=== PATIENT | female | born 1955 | race Caucasian/White ===

== ENCOUNTER 2020-01-13 15:22 | Emergency (ER) | payer MEDICARE, SELFPAY ==
[2020-01-13 15:42] VITALS: BP 158/85; PULSE 114; RESP 14; TEMP 36.7; O2SAT 96; BMI 38.8
--- NOTE | 2020-01-13 17:50 | CTR_ITS ---
PROCEDURE INFORMATION: Exam: CT Abdomen And Pelvis With Contrast Exam date and time: 01/13/2020 6:42 PM Age: 64 years old Clinical indication: Abdominal pain; Flank; Other: Jake; Prior surgery; Surgery date: 6+ months; Surgery type: Urostomy; Patient HX: Spina bifida PT C/O back pain TECHNIQUE: Imaging protocol: Computed tomography of the abdomen and pelvis with intravenous contrast. Radiation optimization: All CT scans at this facility use at least one of these dose optimization techniques: automated exposure control; mA and/or kV adjustment per patient size (includes targeted exams where dose is matched to clinical indication); or iterative reconstruction. Contrast material: OMNI 300; Contrast volume: 95 ml; Contrast route: INTRAVENOUS (IV); COMPARISON: No relevant prior studies available. RADIATION DOSE METRICS: Total DLP (mGy-cm): 1100.08 FINDINGS: Liver: There is a diffuse decrease in hepatic parenchymal density, consistent with fatty infiltration. There is focal fatty sparing about the gallbladder fossa. Gallbladder and bile ducts: See Liver finding. Pancreas: Normal. No ductal dilation. Spleen: Normal. No splenomegaly. Adrenals: Normal. No mass. Kidneys and ureters: Bilateral renal cysts. Largest renal cyst is in the left kidney measuring 18 mm. These have benign features and follow-up is not necessary. Stomach and bowel: Colonic constipation is present. There is a right lower quadrant ostomy. Appendix: No evidence of appendicitis. Intraperitoneal space: Unremarkable. No free air. No significant fluid collection. Vasculature: Unremarkable. No abdominal aortic aneurysm. Lymph nodes: Unremarkable. No enlarged lymph nodes. Bladder: Unremarkable as visualized. Reproductive: There are heterogeneous uterine lesions consistent with fibroids. Bones/joints: Please see the CT scan of the thoracic and lumbar spine for description of the spine including spina bifida findings. Soft tissues: There is increased density in the perianal soft tissues. No abscess is seen. CT/CT abdomen pelvis w con* [id number] IMPRESSION: 1. Fatty infiltration of the liver. 2. Colonic constipation is present. 3. Uterine fibroids. 4. There is non-specific increased density in the perianal soft tissues. Radiation Dose CTDIVOL = (mGy): DLP = 1100.08 (mGy-cm)
--- NOTE | 2020-01-13 17:50 | CTR_ITS ---
PROCEDURE INFORMATION: Exam: CT Lumbar Spine Without Contrast Exam date and time: 01/13/2020 6:42 PM Age: 64 years old Clinical indication: Low back pain; Prior surgery; Surgery date: 6+ months; Patient HX: Spina bifida PT C/O back pain TECHNIQUE: Imaging protocol: Computed tomography images of the lumbar spine without contrast. Radiation optimization: All CT scans at this facility use at least one of these dose optimization techniques: automated exposure control; mA and/or kV adjustment per patient size (includes targeted exams where dose is matched to clinical indication); or iterative reconstruction. COMPARISON: No relevant prior studies available. RADIATION DOSE METRICS: Total DLP (mGy-cm): 2074.85 FINDINGS: Vertebrae: There is spina bifida from the L3-L4 through the L5-S1 levels. The posterior aspect of the thecal sac extrudes 2.7 cm posteriorly through the bony defect at the L4 level.Minimal lateral curvature of the upper lumbar spine with the convexity to the left. 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 L1-L2: No significant disc protrusion. No severe spinal canal stenosis. No significant neural foraminal narrowing. L2-L3: No significant disc protrusion. No spinal canal stenosis. No neural foraminal narrowing. L3-L4: No significant disc protrusion. No severe spinal canal stenosis. No significant neural foraminal narrowing. L4-L5: Minimal disc bulge, posterior osteophytes, and severe facet arthropathy. There is [id number] bilateral neural foraminal narrowing. L5-S1: There is a disc bulge, small posterior osteophytes, and severe facet arthropathy. There is severe narrowing of the right neural foramen with compression of the exiting right L5 nerve root. Mild to moderate narrowing of the left neural foramen. Soft tissues: Unremarkable. CT/CT lumbar spine wo con* [id number] IMPRESSION: 1. There is spina bifida from the L3-L4 through the L5-S1 levels. The posterior aspect of the thecal sac extrudes 2.7 cm posteriorly through the bony defect at the L4 level. 2. 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 3. At L5-S1 level there is a disc bulge, posterior osteophytes, and severe facet arthropathy contributing to severe narrowing of the right neural foramen with compression of the exiting right L5 nerve roots. Radiation Dose CTDIVOL = (mGy): DLP = 2074.85 (mGy-cm)
--- NOTE | 2020-01-13 17:50 | CTR_ITS ---
PROCEDURE INFORMATION: Exam: CT Thoracic Spine Without Contrast Exam date and time: 01/13/2020 6:42 PM Age: 64 years old Clinical indication: Pain in thoracic spine; Without myelpathy or radiculopathy; Patient HX: Spina bifida PT C/O back pain TECHNIQUE: Imaging protocol: Computed tomography images of the thoracic spine without contrast. Radiation optimization: All CT scans at this facility use at least one of these dose optimization techniques: automated exposure control; mA and/or kV adjustment per patient size (includes targeted exams where dose is matched to clinical indication); or iterative reconstruction. COMPARISON: No relevant prior studies available. RADIATION DOSE METRICS: Total DLP (mGy-cm): 1611.1 FINDINGS: Vertebrae: Moderate upper thoracic dextroscoliosis. 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 There are degenerative changes throughout the visualized spine including marginal osteophyte formations, endplate degenerative changes, and facet arthropathy. Discs/Spinal canal/Neural foramina: Multilevel disc space narrowing. There is a midline protrusion at the T7-8 level indenting the anterior thecal sac. A small left paracentral protrusion is present at the T8-9 level indenting the anterior thecal sac. Soft tissues: Unremarkable. CT/CT thoracic spin wo con* [id number] IMPRESSION: 1. Moderate upper thoracic dextroscoliosis. 2. 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 3. There are degenerative changes as described above. No evidence for acute fracture. Radiation Dose CTDIVOL = (mGy): DLP = 1611.1 (mGy-cm)
[2020-01-13 18:12] LABS: Basophils # 0.1 10^3/uL (0.0-0.1); Basophils % 0.4 %; Eosinophils % 0.2 %; Hematocrit 49.3 % (37.0-47.0); Hemoglobin 16.3 g/dL (11.5-15.3); Lymphocytes # 2.9 10^3/uL (0.8-4.8); Lymphocytes % 23.4 %; Mean Corpuscular HGB Conc 33.1 g/dL (30.0-36.0); Mean Corpuscular Hemoglobin 29.5 pg (28.0-34.0); Mean Corpuscular Volume 89.3 fL (81-99); Mean Platelet Volume 8.7 fL (7.4-10.4); Monocytes # 1.1 10^3/uL (0.2-0.9); Neutrophils % 66.8 %; Nucleated Red Blood Cells % 0 %; Platelet Count 437 10^3/cmm (130-400); Red Blood Count 5.52 10^6/uL (4.1-5.3); Red Cell Distribution Width 12.2 % (12.1-15.1); White Blood Count 12.2 10^3/uL (4.0-10.0)
[2020-01-13] MEDS: sodium chloride 0.9% 1,000 ML 100 ML IV (18:22)
[2020-01-13 18:23] VITALS: RESP 18; O2SAT 98
[2020-01-13] MEDS: ondansetron 2 mg/ML SDV 2 mL 4 MG IVP (18:23)
[2020-01-13] MEDS: morphine 4 mg/mL SDV 1 mL IVP (18:23)
[2020-01-13 18:30] LABS: Bilirubin Urine Neg (NEGATIVE); Blood Urine 2+ (Negative); Glucose Urine UA Norm (Normal); Ketones Urine 1+ (Negative); Leukocyte Esterase Urine 1+ (Negative); Nitrate Urine Negative (Negative); Protein Urine Neg (Negative); Urine Appearance Cloudy (CLEAR); Urine Color Yellow (Yellow); Urobilinogen Urine Norm (Negative); pH Urine 7 (5-7)
[2020-01-13 18:31] LABS: Bacteria Urine 3+; Squamous Epithelial Cell Urine 0-4 (0-5); WBC Urine 25-40 /hpf (0-5)
[2020-01-13 18:32] LABS: Add Urine Culture? Yes; Mucus Urine 1+
--- NOTE | 2020-01-13 18:36 | ED_ITS ---
HPI - Back Pain/Injury General: Chief Complaint: Back Pain/Injury Stated Complaint: BACK PAIN Time Seen by Provider: 01/13/20 17:35 Source: patient Mode of arrival: wheelchair Limitations: no limitations History of Present Illness: HPI Narrative: Nemo is a 64-year-old female who comes in complaining of back pain. The patient has spina bifida and has had surgery to cover the affected area. She has had back pain off and on and can walk with braces. About 2-1/2 weeks ago she developed what she thought was a knot or area on her left buttock or upper buttock area. Since that time the pain is gotten progressively worse and she is no longer able to walk. The patient denies any loss of bowel or bladder control specifically bowel control but she normally has a ureterostomy. Patient is difficult to assess secondary to her history of spina bifida partial paralysis. Associated symptoms: Deny abdominal pain, chills, difficulty walking, dysuria, fatigue, fever(s), hematuria, nausea, syncope, urinary urgency or vomiting Review of Systems Const: Denies: fever(s), chills, body aches, fatigue, malaise or diaphoresis Eyes: Denies: change in vision, blurry vision, blind spots, photophobia, eye discharge or eye redness ENMT: Denies: throat pain, odynophagia, hoarseness, swelling of lips/tongue, oral sores, ear or mastoid pain, ear discharge, change in hearing or nasal discharge Card: Denies: chest pain, palpitations, irregular heart rhythm, edema, lightheadedness, syncope, pre-syncope, dyspnea on exertion or orthopnea Resp: Denies: dyspnea, productive cough, non-productive cough, wheezing, hemoptysis or chest congestion GI: Denies: abdominal pain, nausea, vomiting, hematemesis, coffee ground emesis, heartburn, diarrhea, constipation, GI cramping, hematochezia or melena : Denies: flank pain, dysuria, urinary frequency, urinary urgency or hematuria Musc: Reports: back pain; Denies: neck pain, extremity pain, extremity swelling, joint pain, joint swelling, joint redness, joint warmth or joint stiffness Skin/Breast: Denies: rash, pruritus, erythema, skin tenderness or jaundice Neuro: Denies: headache(s), numbness in extremities, weakness in extremities, sensory changes, lack of coordination, difficulty walking, dizziness, vertigo, confusion, Slurred speech present or seizure-like activity Naun/Lymph: Denies: easy bruising, easy bleeding, petechiae, purpura or enlarged lymph nodes All/Imm: Denies: urticaria, throat swelling, tongue swelling, facial swelling or acute wheezing PFSH ED PFSH: Medical History Spina bifida occulta Surgical History Previous back surgery Physical Exam Const: COMMON NORMALS: no acute distress, patient oriented x3, no limitations, healthy appearing and well nourished GENERAL APPEARANCE: cooperative, well kempt and well developed HENMT: COMMON NORMALS: normocephalic, atraumatic, external ears normal, EAC's normal and Normal external nose present HEAD & SCALP: normal to inspection, normocephalic and atraumatic FACE & SINUS: normal facial exam and face symmetric NOSE: Normal external nose present and Normal nares present EXTERNAL EAR: Yes external ears normal EXTERNAL AUDITORY CANAL: EAC's normal MOUTH: Normal oral and palatal mucosa present, lip normal and tongue normal Eye: COMMON NORMALS: Equal, round and reactive pupils present and conjunctivae normal GENERAL EYE: appearance normal, both eyes and all related structures ALIGNMENT: Yes alignment normal PERIORBITAL: periorbital findings normal EYELID: eyelids normal CONJUNCTIVA: Yes conjunctivae normal SCLERA: sclerae normal PUPIL: Yes Equal, round and reactive pupils present Neck/C-Spine: COMMON NORMALS: full ROM, no lymphadenopathy, supple, no meningeal signs and no JVD GENERAL: Yes normal visual inspection and Yes trachea midline Chest: COMMONS NORMALS: normal inspection of the chest and normal palpation of entire chest wall Resp: COMMON NORMALS: normal respiratory effort, No retractions and No use of accessory muscles EFFORT & INSPECTION: Yes able to speak in complete sentences and Yes symmetric chest movement AUSCULTATION: no crackles, no rales, no rhonchi and no wheezes Cardio: COMMON NORMALS: no JVD, regular rate, regular rhythm, S1 normal heart sound present and S2 normal heart sound present RATE: regular rate RHYTHM: regular rhythm HEART SOUNDS: S1 normal heart sound present, S2 normal heart sound present, no click, no gallops, no murmurs, no rubs and abnormal split S2 GI: COMMON NORMALS: Soft to palpation and No hepatosplenomegaly present PALPATION: Yes Soft to palpation, No Tenderness to palpation present (GI), No Guarding due to palpation present (GI), No Rigid due to palpation, Yes No hepatosplenomegaly present, No Hernia present, No Palpable mass present and No P ulsatile mass present : COMMON NORMALS: Yes no CVA tenderness BLADDER/KIDNEY EXAM: Yes no CVA tenderness EXTERNAL FEMALE EXAM: No Hernia present Back/Pelvis: COMMON NORMALS: no CVA tenderness, thoracic and lumbar spine normal to inspection, no thoracic nor lumbar tenderness and thoraco-lumbar ROM normal Neuro: COMMON NORMALS: patient oriented x3 and CN's II-XII intact bilaterally MENINGEAL SIGNS: Yes no meningeal signs SPEECH: speech normal GAIT: Yes Other gait observations present (Unable to ambulate secondary to pain) SENSORY EXAM: Yes Trunk sensory exam abnormal (Present to the level midway between pubic ramus and umbilicus) MOTOR EXAM: Other motor observations present (Patient with 4-5 muscle strength bilateral hips. Patient with 0-5 muscle strength from the knees down bilaterally.) DEEP TENDON REFLEXES: Right patellar reflex intensity grade: 0, Left patellar reflex intensity grade: 0, Right ankle reflex intensity grade: 0 and Left ankle reflex intensity grade: 0 Psych: APPEARANCE: Yes well kempt Skin: COMMON NORMALS: no rashes or lesions noted, turgor normal, no jaundice, no petechiae and no mottling GENERAL SKIN EXAM: no rashes or lesions noted and turgor normal Course ED course: 2003 -Case reviewed with Dr. Leon at [facility], he recommends MRI as the patient's normal neurologic exam is altered from the spina bifida. She is available for review if necessary based upon results. Vital Signs: Vital signs: Vital Signs Temperature 98.2 F 01/13/20 22:08 Pulse Rate 84 01/13/20 22:08 Respiratory Rate 18 01/13/20 22:08 Blood Pressure 135/73 01/13/20 22:08 Pulse Oximetry 92 01/13/20 22:08 MDM - Back Pain/Injury MDM Narrative: Medical decision making narrative: [id number] -the MRIs were discussed with the radiologist directly. She states that she cannot rule out a cord compression syndrome secondary to the patient's appearance of her cord and the changes secondary to her spina bifida. The case was again completely reviewed with Dr. Leon, she cannot commit to an opinion without reviewing the patient's MRIs. We have tried multiple times to send the patient's MRIs electronically to [facility] but have been unsuccessful as of this time. With a complex presentation of this patient secondary to her spina bifida I believe a neurosurgical or a back specialist evaluation is appropriate as well, I believe review of the MRIs, lab values and a physical exam would be appropriate in this complex scenario. I did review the case with Dr. Sheets who states even if the neurosurgeon is able at some point to see the MRIs he is uncomfortable keeping her here as she is too complex and he believes the patient needs to see the neurosurgeon or back specialist directly. Clinically the patient states she has no reflexes normally and we cannot assess for urinary retention as the patient has a ureterostomy. She does not appear septic from a UTI at this time but I have covered her with antibiotics. The patient has continued pain and cannot get up out of bed to walk and I believe this would be a tremendous loss to her if she would lose the ability to ambulate. I have reviewed the case with Dr. Cornelius at [facility] emergency department and she agrees to accept the patient in transfer. We will send the patient's hard copies of her MRIs as well as the reports to them. I did review the case verbally over the phone with radiologist who could not confirm to me there was no evidence of cauda equina syndrome and actually stated that there could be based upon the patient's anatomy from her spina bifida. Clinically I think this is less likely but again after reviewing with the patient she wants to be transferred for evaluation by the neurosurgeon. She is refusing to go by air ambulance service so we will transfer her by ground transfer as soon as possible. Lab Data: Attestation: I reviewed the patient's lab results. Labs: Lab Results 01/13/20 01/13/20 01/13/20 Range/Units 17:25 18:05 18:05 WBC 12.2 H (4.0-10.0) 10^3/ uL RBC 5.52 H (4.1-5.3) 10^6/u L Hgb 16.3 H (11.5-15.3) g/dL Hct 49.3 H (37.0-47.0) % MCV 89.3 (81-99) fL MCH 29.5 (28.0-34.0) pg MCHC 33.1 (30.0-36.0) g/dL RDW 12.2 (12.1-15.1) % Plt Count 437 H (130-400) 10^3/c mm MPV 8.7 (7.4-10.4) fL Neut % (Auto) 66.8 % Lymph % (Auto) 23.4 % [place] % (Auto) 9.0 % Eos % (Auto) 0.2 % Baso % (Auto) 0.4 % Neut # (Auto) 8.10 H (1.8-7.7) 10^3/u L Lymph # (Auto) 2.9 (0.8-4.8) 10^3/u L [place] # (Auto) 1.1 H (0.2-0.9) 10^3/u L Eos # (Auto) 0.0 (0.0-0.8) 10^3/u L Baso # (Auto) 0.1 (0.0-0.1) 10^3/u L Nucleated RBC % (a uto) 0 % Nucleated RBCs # 0.0 /100WBC Sodium 139 (136-145) mmol/L Potassium 3.8 (3.5-5.1) mmol/L Chloride 104 (98-107) mmol/L Carbon Dioxide 22 (22-29) mmol/L Anion Gap 16.8 (5-19) BUN 24 H (8-23) mg/dL Creatinine 0.7 (0.5-0.9) mg/dL GFR Calculation 84.0 L (90-130) mL/min Glucose 101 (65-115) mg/dL Calculated Osmolal ity 285 (285-295) mOsm/k g Lactic Acid (0.5-2.2) mmol/L Lactic Acid (Sepsi s) (0.5-2.2) mmol/L Calcium 10.6 H (8.5-10.5) mg/dL Magnesium 2.1 (1.7-2.3) mg/dL Total Bilirubin 0.5 (0.15-1.2) mg/dL AST 22 (0-32) U/L ALT 37 H (0-33) U/L Alkaline Phosphata se 109 H (35-105) IU/L Total Protein 8.2 (6.6-8.7) g/dL Albumin 4.7 (3.5-5.2) g/dL Globulin 3.5 (1.3-4.6) g/dL Urine Color Yellow (Yellow) Urine Appearance Cloudy (CLEAR) Urine pH 7 (5-7) Ur Specific Gravit y 1.010 (1.005-1.030) Urine Protein Neg (Negative) Urine Glucose (UA) Norm (Normal) Urine Ketones 1+ H (Negative) Urine Blood 2+ H (Negative) Urine Nitrate Negative (Negative) Urine Bilirubin Neg (NEGATIVE) Urine Urobilinogen Norm (Negative) mg/dL Ur Leukocyte Nano ase 1+ H (Negative) Urine RBC 5-10 H (0-2) /hpf Urine WBC 25-40 H (0-5) /hpf Ur Squamous Epith Cells 0-4 H (0-5) Amorphous Sediment Not Reportable Urine Bacteria 3+ H (NONE) Urine Mucus 1+ 01/13/20 01/13/20 Range/Units 18:05 22:12 WBC (4.0-10.0) 10^3/ uL RBC (4.1-5.3) 10^6/u L Hgb (11.5-15.3) g/dL Hct (37.0-47.0) % MCV (81-99) fL MCH (28.0-34.0) pg MCHC (30.0-36.0) g/dL RDW (12.1-15.1) % Plt Count (130-400) 10^3/c mm MPV (7.4-10.4) fL Neut % (Auto) % Lymph % (Auto) % [place] % (Auto) % Eos % (Auto) % Baso % (Auto) % Neut # (Auto) (1.8-7.7) 10^3/u L Lymph # (Auto) (0.8-4.8) 10^3/u L [place] # (Auto) (0.2-0.9) 10^3/u L Eos # (Auto) (0.0-0.8) 10^3/u L Baso # (Auto) (0.0-0.1) 10^3/u L Nucleated RBC % (a uto) % Nucleated RBCs # /100WBC Sodium (136-145) mmol/L Potassium (3.5-5.1) mmol/L Chloride (98-107) mmol/L Carbon Dioxide (22-29) mmol/L Anion Gap (5-19) BUN (8-23) mg/dL Creatinine (0.5-0.9) mg/dL GFR Calculation (90-130) mL/min Glucose (65-115) mg/dL Calculated Osmolal ity (285-295) mOsm/k g Lactic Acid 2.2 (0.5-2.2) mmol/L Lactic Acid (Sepsi s) 0.8 (0.5-2.2) mmol/L Calcium (8.5-10.5) mg/dL Magnesium (1.7-2.3) mg/dL Total Bilirubin (0.15-1.2) mg/dL AST (0-32) U/L ALT (0-33) U/L Alkaline Phosphata se (35-105) IU/L Total Protein (6.6-8.7) g/dL Albumin (3.5-5.2) g/dL Globulin (1.3-4.6) g/dL Urine Color (Yellow) Urine Appearance (CLEAR) Urine pH (5-7) Ur Specific Gravit y (1.005-1.030) Urine Protein (Negative) Urine Glucose (UA) (Normal) Urine Ketones (Negative) Urine Blood (Negative) Urine Nitrate (Negative) Urine Bilirubin (NEGATIVE) Urine Urobilinogen (Negative) mg/dL Ur Leukocyte Nano ase (Negative) Urine RBC (0-2) /hpf Urine WBC (0-5) /hpf Ur Squamous Epith Cells (0-5) Amorphous Sediment Urine Bacteria (NONE) Urine Mucus Imaging Data^: CT Abd/Pel: Radiologist's impression: [address] [address] [address] Scan Report Signed Patient: Nemo Peters Unit #: [id number] : 1955 Age/Sex: 64 / F ADM Date: 01/13/20 Loc: ER Room/Bed: Attending Dr: Ordering Provider/Ordering MD: Dannielle Hernandez DO Date of Service: 01/13/20 Procedure(s): CT abdomen pelvis w con* [id number] Accession Number(s): [id number] Report Number: [id number] PROCEDURE INFORMATION: Exam: CT Abdomen And Pelvis With Contrast Exam date and time: 01/13/2020 6:42 PM Age: 64 years old Clinical indication: Abdominal pain; Flank; Other: Jake; Prior surgery; Surgery date: 6+ months; Surgery type: Urostomy; Patient HX: Spina bifida PT C/O back pain TECHNIQUE: Imaging protocol: Computed tomography of the abdomen and pelvis with intravenous contrast. Radiation optimization: All CT scans at this facility use at least one of these dose optimization techniques: automated exposure control; mA and/or kV adjustment per patient size (includes targeted exams where dose is matched to clinical indication); or iterative reconstruction. Contrast material: OMNI 300; Contrast volume: 95 ml; Contrast route: INTRAVENOUS (IV); COMPARISON: No relevant prior studies available. RADIATION DOSE METRICS: Total DLP (mGy-cm): 1100.08 FINDINGS: Liver: There is a diffuse decrease in hepatic parenchymal density, consistent with fatty infiltration. There is focal fatty sparing about the gallbladder fossa. Gallbladder and bile ducts: See Liver finding. Pancreas: Normal. No ductal dilation. Spleen: Normal. No splenomegaly. Adrenals: Normal. No mass. Kidneys and ureters: Bilateral renal cysts. Largest renal cyst is in the left kidney measuring 18 mm. These have benign features and follow-up is not necessary. Stomach and bowel: Colonic constipation is present. There is a right lower quadrant ostomy. Appendix: No evidence of appendicitis. Intraperitoneal space: Unremarkable. No free air. No significant fluid collection. Vasculature: Unremarkable. No abdominal aortic aneurysm. Lymph nodes: Unremarkable. No enlarged lymph nodes. Bladder: Unremarkable as visualized. Reproductive: There are heterogeneous uterine lesions consistent with fibroids. Bones/joints: Please see the CT scan of the thoracic and lumbar spine for description of the spine including spina bifida findings. Soft tissues: There is increased density in the perianal soft tissues. No abscess is seen. CT/CT abdomen pelvis w con* [id number] IMPRESSION: 1. Fatty infiltration of the liver. 2. Colonic constipation is present. 3. Uterine fibroids. 4. There is non-specific increased density in the perianal soft tissues. Radiation Dose CTDIVOL = (mGy): DLP = 1100.08 (mGy-cm) Dictated By: Taylor Hampton MD Signed By: Taylor Hampton MD Signed Date/Time: 01/13/201950 DD/ 49 CT Thoracic Spine: Radiologist's impression: [facility] [address] [place] [address] CT Scan Report Signed Patient: Nemo Peters Unit #: [id number] : 1955 Age/Sex: 64 / F ADM Date: 01/13/20 Loc: ER Room/Bed: Attending Dr: Ordering Provider/Ordering MD: Dannielle Hernandez DO Date of Service: 01/13/20 Procedure(s): CT thoracic spin wo con* [id number] Accession Number(s): [id number] Report Number: [id number] PROCEDURE INFORMATION: Exam: CT Thoracic Spine Without Contrast Exam date and time: 01/13/2020 6:42 PM Age: 64 years old Clinical indication: Pain in thoracic spine; Without myelpathy or radiculopathy; Patient HX: Spina bifida PT C/O back pain TECHNIQUE: Imaging protocol: Computed tomography images of the thoracic spine without contrast. Radiation optimization: All CT scans at this facility use at least one of these dose optimization techniques: automated exposure control; mA and/or kV adjustment per patient size (includes targeted exams where dose is matched to clinical indication); or iterative reconstruction. COMPARISON: No relevant prior studies available. RADIATION DOSE METRICS: Total DLP (mGy-cm): 1611.1 FINDINGS: Vertebrae: Moderate upper thoracic dextroscoliosis. 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 There are degenerative changes throughout the visualized spine including marginal osteophyte formations, endplate degenerative changes, and facet arthropathy. Discs/Spinal canal/Neural foramina: Multilevel disc space narrowing. There is a midline protrusion at the T7-8 level indenting the anterior thecal sac. A small left paracentral protrusion is present at the T8-9 level indenting the anterior thecal sac. Soft tissues: Unremarkable. CT/CT thoracic spin wo con* [id number] IMPRESSION: 1. Moderate upper thoracic dextroscoliosis. 2. 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 3. There are degenerative changes as described above. No evidence for acute fracture. Radiation Dose CTDIVOL = (mGy): DLP = 1611.1 (mGy-cm) Dictated By: Taylor Hampton MD Signed By: Taylor Hampton MD Signed Date/Time: 01/13/201939 DD/ 37 CT Lumbar Spine: Radiologist's impression: [address] [address] [address] Scan Report Signed with Addenda Patient: Nemo Peters Unit #: [id number] : 1955 Age/Sex: 64 / F ADM Date: 01/13/20 Loc: ER Room/Bed: Attending Dr: Ordering Provider/Ordering MD: Dannielle Hernandez DO Date of Service: 01/13/20 Procedure(s): CT lumbar spine wo con* [id number] Accession Number(s): [id number] Report Number: [id number]/CT lumbar spine wo con* [id number] Findings were discussed with the patient's physician at the time of this addendum. Radiation Dose CTDIVOL = (mGy): DLP = 2074.85 (mGy-cm) Addendum Dictated By: Taylor Hampton MD Addendum Signed By: Taylor Hampton MD Signed Date/Time: 01/13/20 438 Addendum Cosigned By: PROCEDURE INFORMATION: Exam: CT Lumbar Spine Without Contrast Exam date and time: 01/13/2020 6:42 PM Age: 64 years old Clinical indication: Low back pain; Prior surgery; Surgery date: 6+ months; Patient HX: Spina bifida PT C/O back pain TECHNIQUE: Imaging protocol: Computed tomography images of the lumbar spine without contrast. Radiation optimization: All CT scans at this facility use at least one of these dose optimization techniques: automated exposure control; mA and/or kV adjustment per patient size (includes targeted exams where dose is matched to clinical indication); or iterative reconstruction. COMPARISON: No relevant prior studies available. RADIATION DOSE METRICS: Total DLP (mGy-cm): 2074.85 FINDINGS: Vertebrae: There is spina bifida from the L3-L4 through the L5-S1 levels. The posterior aspect of the thecal sac extrudes 2.7 cm posteriorly through the bony defect at the L4 level.Minimal lateral curvature of the upper lumbar spine with the convexity to the left. 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 L1-L2: No significant disc protrusion. No severe spinal canal stenosis. No significant neural foraminal narrowing. L2-L3: No significant disc protrusion. No spinal canal stenosis. No neural foraminal narrowing. L3-L4: No significant disc protrusion. No severe spinal canal stenosis. No significant neural foraminal narrowing. L4-L5: Minimal disc bulge, posterior osteophytes, and severe facet arthropathy. There is [id number] bilateral neural foraminal narrowing. L5-S1: There is a disc bulge, small posterior osteophytes, and severe facet arthropathy. There is severe narrowing of the right neural foramen with compression of the exiting right L5 nerve root. Mild to moderate narrowing of the left neural foramen. Soft tissues: Unremarkable. CT/CT lumbar spine wo con* [id number] IMPRESSION: 1. There is spina bifida from the L3-L4 through the L5-S1 levels. The posterior aspect of the thecal sac extrudes 2.7 cm posteriorly through the bony defect at the L4 level. 2. 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 3. At L5-S1 level there is a disc bulge, posterior osteophytes, and severe facet arthropathy contributing to severe narrowing of the right neural foramen with compression of the exiting right L5 nerve roots. Radiation Dose CTDIVOL = (mGy): DLP = 2074.85 (mGy-cm) Dictated By: Taylor Hampton MD Signed By: Taylor Hampton MD Signed Date/Time: 01/13/201946 DD/ 44 MR Thoracic Spine: Radiologist's impression: [address] [place] [address] Magnetic Resonance Report Signed Patient: Nemo Peters Unit #: [id number] : 1955 Age/Sex: 64 / F ADM Date: 01/13/20 Loc: ER Room/Bed: Attending Dr: Ordering Provider/Ordering MD: Dannielle Hernandez DO Date of Service: 01/13/20 Procedure(s): MR thoracic spin wo con* [id number] Accession Number(s): [id number] Report Number: [id number] PROCEDURE INFORMATION: Exam: MR Thoracic Spine Without Contrast Exam date and time: 01/13/2020 8:04 PM Age: 64 years old Clinical indication: Pain in thoracic spine; Prior surgery; Additional info: Pain, leg weakness TECHNIQUE: Imaging protocol: Multiplanar magnetic resonance images of the thoracic spine without contrast. COMPARISON: CT thoracic spin wo con* [id number] 01/13/2020 6:47 PM FINDINGS: Vertebrae: There is partial congenital osseous fusion across the T5-T6 level. Spinal cord: Normal signal. No cord compression. Discs/Spinal canal/Neural foramina: At the T7-8 level there is a midline/left paracentral protrusion indenting the anterior thecal sac. No significant canal stenosis or cord compression. Neural foramina are within normal limits in caliber. At the T8-9 level there is a small left paracentral posterior osteophyte which indents the anterior thecal sac. No significant canal or neural foramina stenosis. There is a benign hemangioma in the L1 vertebra. Mild thoracic dextroscoliosis. There are a combination of sclerotic and edematous endplate degenerative changes across the T7-8 level at the apex of the scoliotic curvature. Soft tissues: Unremarkable. MR/MR thoracic spin wo con* [id number] IMPRESSION: 1. 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 2. Mild thoracic dextroscoliosis. There are a combination of sclerotic and edematous endplate degenerative changes across the T7-8 level at the apex of the scoliotic curvature. 3. At the T8-9 level there is a small left paracentral posterior osteophyte which indents the anterior thecal sac. No significant canal or neural foramina stenosis. Dictated By: Taylor Hampton MD Signed By: Taylor Hampton MD Signed Date/Time: 01/13/202207 DD/ 05 MR Lumbar Spine: Radiologist's impression: [address] [place] [address] Magnetic Resonance Report Signed Patient: Nemo Peters Unit #: [id number] : 1955 Age/Sex: 64 / F ADM Date: 01/13/20 Loc: ER Room/Bed: Attending Dr: Ordering Provider/Ordering MD: Dannielle Hernandez DO Date of Service: 01/13/20 Procedure(s): MR lumbar spine wo con* [id number] Accession Number(s): [id number] Report Number: [id number] PROCEDURE INFORMATION: Exam: MR Lumbar Spine Without Contrast. Exam date and time: 01/13/2020 8:04 PM Age: 64 years old Clinical indication: Low back pain; Prior surgery; Surgery type: 1954 lumbar surgery HX of spinal bifida; Additional info: Pain, leg weakness TECHNIQUE: Imaging protocol: Multiplanar magnetic resonance images of the lumbar spine without intravenous contrast. COMPARISON: CT lumbar spine wo con* [id number] 01/13/2020 6:50 PM FINDINGS: Vertebrae: L1 benign hemangioma. There are defects in the posterior elements from the L3-L4 through L5-S1 levels, consistent with spina bifida. The thecal sac is elongated and extrudes through the posterior element defects at the L4-L5 level. Thecal sac measures 4.3 cm in AP dimension at the L4-L5 level. Spinal cord: The conus is low lying terminating at the L3 level. Hypoplastic appearing cauda equina are present inferior to the conus with some extrusion through the bony defect at the L4-L5 level. L1-L2: No significant disc disease. No significant spinal canal stenosis. 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 L2-L3: No significant disc disease. There are small posterior osteophytes and moderate facet arthropathy. In combination with short pedicles, there is moderate to severe bilateral neural foraminal narrowing. L3-L4: No significant disc disease. There are posterior osteophytes and moderate to severe facet arthropathy. In combination with congenitally short pedicles, there is moderate to severe bilateral neural foraminal narrowing. L4-L5: There is a minimal broad-based disc osteophyte complex and severe facet arthropathy. In combination with congenital short pedicles there is moderate narrowing of the left neural foramen and moderate to severe narrowing of the right neural foramen. 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 Small posterior osteophytes and moderate facet arthropathy in combination with short pedicles contribute to mild narrowing of the left neural foramen and severe narrowing of the right neural foramen. Soft tissues: There is edema in the subcutaneous soft tissues of the lower lumbar spine. MR/MR lumbar spine wo con* [id number] IMPRESSION: 1. There are spina bifida changes from the L3-L4 through the L5-S1 levels as described above with extrusion of the thecal sac through the bony defects at the L4-L5 level. The conus is low lying terminating at the L3 level and the cauda equina are hypoplastic appearing. 2. Multilevel, multifactorial degenerative changes are present in the lumbar spine which in combination with congenitally short pedicles contribute to varying degrees of bilateral neural foraminal narrowing as described in detail above. Dictated By: Taylor Hampton MD Signed By: Taylor Hampton MD Signed Date/Time: 01/13/202218 DD/ 17 Discharge Plan Discharge Patient Disposition: Xfer Short-Term Hosp Clinical Impression: Intractable back pain Condition: Stable Referrals: Fransico Mancilla DO [Primary Care Provider] - Discharge Date/Time: 01/14/20 00:49 Coding Level of Care Code ED Intensive Care Anaesthetist for Chg Fwd Exam Comprehensive
[2020-01-13 18:38] LABS: Alanine Aminotransferase 37 U/L (0-33); Albumin Level 4.7 g/dL (3.5-5.2); Alkaline Phosphatase 109 IU/L (35-105); Anion Gap 16.8 (5-19); Aspartate Amino Transferase 22 U/L (0-32); Blood Urea Nitrogen 24 mg/dL (8-23); Calcium 10.6 mg/dL (8.5-10.5); Carbon Dioxide 22 mmol/L (22-29); Chloride 104 mmol/L (98-107); Globulin 3.5 g/dL (1.3-4.6); Glucose 101 mg/dL (65-115); Magnesium 2.1 mg/dL (1.7-2.3); Osmolality Calculated 285 mOsm/kg (285-295); Potassium 3.8 mmol/L (3.5-5.1); Sodium 139 mmol/L (136-145); Total Bilirubin 0.5 mg/dL (0.15-1.2); Total Protein 8.2 g/dL (6.6-8.7)
[2020-01-13] MEDS: iohexol 300 mg/mL 100 mL Btl IV (19:03)
[2020-01-13 19:06] LABS: Lactic Sepsis W/Reflex 2.2 mmol/L (0.5-2.2)
[2020-01-13] MEDS: cefTRIAXone 1,000 MG in sodium chloride 0.9% (plus) 50 ML 100 MG IV (19:38)
--- NOTE | 2020-01-13 20:03 | MRR_ITS ---
PROCEDURE INFORMATION: Exam: MR Lumbar Spine Without Contrast. Exam date and time: 01/13/2020 8:04 PM Age: 64 years old Clinical indication: Low back pain; Prior surgery; Surgery type: 1954 lumbar surgery HX of spinal bifida; Additional info: Pain, leg weakness TECHNIQUE: Imaging protocol: Multiplanar magnetic resonance images of the lumbar spine without intravenous contrast. COMPARISON: CT lumbar spine wo con* [id number] 01/13/2020 6:50 PM FINDINGS: Vertebrae: L1 benign hemangioma. There are defects in the posterior elements from the L3-L4 through L5-S1 levels, consistent with spina bifida. The thecal sac is elongated and extrudes through the posterior element defects at the L4-L5 level. Thecal sac measures 4.3 cm in AP dimension at the L4-L5 level. Spinal cord: The conus is low lying terminating at the L3 level. Hypoplastic appearing cauda equina are present inferior to the conus with some extrusion through the bony defect at the L4-L5 level. L1-L2: No significant disc disease. No significant spinal canal stenosis. 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 L2-L3: No significant disc disease. There are small posterior osteophytes and moderate facet arthropathy. In combination with short pedicles, there is moderate to severe bilateral neural foraminal narrowing. L3-L4: No significant disc disease. There are posterior osteophytes and moderate to severe facet arthropathy. In combination with congenitally short pedicles, there is moderate to severe bilateral neural foraminal narrowing. L4-L5: There is a minimal broad-based disc osteophyte complex and severe facet arthropathy. In combination with congenital short pedicles there is moderate narrowing of the left neural foramen and moderate to severe narrowing of the right neural foramen. 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 Small posterior osteophytes and moderate facet arthropathy in combination with short pedicles contribute to mild narrowing of the left neural foramen and severe narrowing of the right neural foramen. Soft tissues: There is edema in the subcutaneous soft tissues of the lower lumbar spine. MR/MR lumbar spine wo con* [id number] IMPRESSION: 1. There are spina bifida changes from the L3-L4 through the L5-S1 levels as described above with extrusion of the thecal sac through the bony defects at the L4-L5 level. The conus is low lying terminating at the L3 level and the cauda equina are hypoplastic appearing. 2. Multilevel, multifactorial degenerative changes are present in the lumbar spine which in combination with congenitally short pedicles contribute to varying degrees of bilateral neural foraminal narrowing as described in detail above.
--- NOTE | 2020-01-13 20:03 | MRR_ITS ---
PROCEDURE INFORMATION: Exam: MR Thoracic Spine Without Contrast Exam date and time: 01/13/2020 8:04 PM Age: 64 years old Clinical indication: Pain in thoracic spine; Prior surgery; Additional info: Pain, leg weakness TECHNIQUE: Imaging protocol: Multiplanar magnetic resonance images of the thoracic spine without contrast. COMPARISON: CT thoracic spin wo con* [id number] 01/13/2020 6:47 PM FINDINGS: Vertebrae: There is partial congenital osseous fusion across the T5-T6 level. Spinal cord: Normal signal. No cord compression. Discs/Spinal canal/Neural foramina: At the T7-8 level there is a midline/left paracentral protrusion indenting the anterior thecal sac. No significant canal stenosis or cord compression. Neural foramina are within normal limits in caliber. At the T8-9 level there is a small left paracentral posterior osteophyte which indents the anterior thecal sac. No significant canal or neural foramina stenosis. There is a benign hemangioma in the L1 vertebra. Mild thoracic dextroscoliosis. There are a combination of sclerotic and edematous endplate degenerative changes across the T7-8 level at the apex of the scoliotic curvature. Soft tissues: Unremarkable. MR/MR thoracic spin wo con* [id number] IMPRESSION: 1. 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 2. Mild thoracic dextroscoliosis. There are a combination of sclerotic and edematous endplate degenerative changes across the T7-8 level at the apex of the scoliotic curvature. 3. At the T8-9 level there is a small left paracentral posterior osteophyte which indents the anterior thecal sac. No significant canal or neural foramina stenosis.
[2020-01-13 20:08] VITALS: RESP 18
[2020-01-13] MEDS: HYDROmorphone 1 mg/mL INJ 1 mL 0.5 MG IVP ×2 (20:08→21:15)
[2020-01-13 20:15] VITALS: BP 150/87; PULSE 97; RESP 16; TEMP 36.7; O2SAT 98
[2020-01-13 20:40] LABS: Reflex Lactate Order REFLEX LACTIC ORDERD
--- NOTE | 2020-01-13 21:07 | PC.NURSE ---
Pt is in MRI at this time
[2020-01-13 21:15] VITALS: RESP 18
[2020-01-13 22:08] VITALS: BP 135/73; PULSE 84; RESP 18; TEMP 36.8; O2SAT 92
[2020-01-13 22:30] LABS: Lactic Acid level (Lactate) 0.8 mmol/L (0.5-2.2)
--- NOTE | 2020-01-14 05:57 | PC.NURSE ---
0.5 mg of Dilaudid was wasted with FISH Lyman
--- NOTE | 2020-01-14 05:58 | PC.NURSE ---
rolanda Jackson RN wasting 0.5 mg hydromorphone in sharps container.
== END 2020-01-14 00:49 | disposition short-term general hospital (02) ==
PROVIDERS: Emergency Provider Emergency Medicine; PCP Internal Medicine
DX: M54.89 Other dorsalgia (principal); Q76.0 Spina bifida occulta
CPT/HCPCS: 12345; 72128; 72131; 72146; 72148; 74177; 80053; 81001; 83605; 83735; 85025; 87040; 87077; 87086; 87186; 96361; 96365; 96375; 96376; 99282; 99285; J0696; J1170; J2270; J2405; J7030; Q9967